=== PATIENT | female | born 1975 | race Caucasian/White ===

== ENCOUNTER → 2018-07-07 | Outpatient (CLI) | payer BC ==
[~2018-07-07] MED LIST: DIPH50CA PO; NITR-65 PO; PHEN200T27 PO
--- NOTE | 2018-07-07 17:44 | Diagnostic Imaging Report ---
INDICATION: Right-sided pelvic pain. Pelvic sonography is performed with transabdominal and transvaginal views. The uterus measures 11.6 x 7.1 x 5.9 cm. Endometrium appears thickened measuring 1.8 cm. The right ovary appears normal and measures 4.4 x 2.3 x 2.6 cm. The right ovary contains color flow. Left ovary could not be visualized. IMPRESSION: Thickened endometrium, correlate with menstrual phase. No uterine mass is seen. Normal-appearing right ovary, left ovary not visualized. There is no free fluid. Dictated by: Dictated on workstation # [id number]
--- NOTE | 2018-07-08 21:16 | Diagnostic Imaging Report ---
INDICATION: Routine screening. No prior mammograms are available for comparison. This is a baseline study. 2-D and 3-D bilateral screening mammography was performed with computer-aided Detection (CAD) system. FINDINGS: Scattered fibroglandular densities are identified bilaterally. No mass or malignant-appearing microcalcifications are identified. The axillae are unremarkable. IMPRESSION: No mammographic features suspicious for malignancy are identified. ACR BI-RADS Category 1: Negative. Result letter will be mailed to the patient. Note: At least 10% of breast cancer is not imaged by mammography. Dictated by: Dictated on workstation # [id number]
== END ==
LOC: RAD 14:50
PROVIDERS: ATTEND Nurse Practitioner
DX: Z12.31 Encounter for screening mammogram for malignant neoplasm of breast (principal); N85.8 Other specified noninflammatory disorders of uterus
CPT/HCPCS: 76830; 76856; 77067

== ENCOUNTER 2018-08-23 09:59 | Outpatient (CLI) | payer BC ==
[~2018-08-23] VITALS: Ht 172.7 cm; Wt 112.0 kg
== END 2018-08-23 15:34 | disposition home or self-care (01) ==
LOC: PREOP 09:59
PROVIDERS: ATTEND Obstetrics & Gynecology
DX: Z01.818 Encounter for other preprocedural examination (principal)

== ENCOUNTER 2018-08-25 08:37 | Day surgery (SDC) | payer BC ==
[~2018-08-25] VITALS: Ht 172.7 cm; Wt 109.8 kg
--- OUTSIDE RECORDS SUMMARY | 2018-08-25 08:41 | XMS REPORT | Continuity of Care Document ---
Author Author [facility] Organization [facility] Address Unknown Phone Unavailable Allergies Active Description Code Type Severity Reaction Onset Reported/Identified Relationship to Patient Clinical Status Yes No Known Drug Allergies [id number] Drug Allergy Unknown N/A 04/29/2013 Medications There is no data. 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 Results There is no data. Encounters ACCT No. Visit Date/Time Discharge Status Pt. Type Provider Facility Loc./Unit Complaint [id number] 08/23/2018 09:59:00 08/23/2018 15:34:00 DIS Outpatient BETO CARLSON DO [facility] PREOP ABNORMAL UTERINE BLEEDING [id number] 07/07/2018 14:50:00 07/07/2018 23:59:59 CLS Outpatient MARSHA ANNE [facility] RAD SCREENING/RLQ DISCOMFORT [id number] 06/17/2015 08:53:00 06/17/2015 23:59:59 CLS Outpatient BETO POPE MD [facility] WOUNDCARE [id number] 04/28/2013 23:46:00 04/29/2013 01:21:00 DIS Emergency ILIR ZELDA ROMERO Sumit [facility] ER UTI [id number] 08/25/2018 10:15:00 PEN Preadmit BETO CARLSON DO [facility] SDC ABNORMAL UTERINE BLEEDING [id number] 07/03/2015 00:00:00 Document Registration [id number] 07/26/2014 22:26:00 Document Registration
[2018-08-25] MEDS ORDERED: LACTATED RINGERS 1,000 ML IV PRN (08:49)
[2018-08-25 09:15] VITALS: BP 96/56
[2018-08-25 09:29] LABS: BASOPHILS % (AUTO) 0 % (0-10); EOSINOPHILS # (AUTO) 0.2 10^3/uL (0.0-0.3); EOSINOPHILS % (AUTO) 3 % (0-10); HEMATOCRIT 40 % (35-52); HEMOGLOBIN 14.1 G/DL (11.5-16.0); LYMPHOCYTES # (AUTO) 2.4 X 10^3 (1.0-4.0); LYMPHOCYTES % (AUTO) 38 % (12-44); MEAN CORPUSCULAR HEMOGLOBIN 32 PG (25-34); MEAN CORPUSCULAR HGB CONC 35 G/DL (32-36); MEAN CORPUSCULAR VOLUME 89 FL (80-99); MEAN PLATELET VOLUME 10.5 FL (7.4-10.4); MONOCYTES # (AUTO) 0.6 X 10^3 (0.0-1.0); MONOCYTES % (AUTO) 9 % (0-12); NEUTROPHILS # (AUTO) 3.2 X 10^3 (1.8-7.8); NEUTROPHILS % (AUTO) 50 % (42-75); PLATELET COUNT 313 10^3/uL (130-400); RED CELL DISTRIBUTION WIDTH 13.7 % (10.0-14.5); WHITE BLOOD COUNT 6.4 10^3/uL (4.3-11.0)
[2018-08-25] MEDS ORDERED: D5 LR IV SOLUTION 1,000 ML IV SCH (09:40)
--- NOTE | 2018-08-25 09:42 | Discharge Inst-Women's Service ---
Discharge Inst-Women's Serv Depart Medication/Instructions New, Converted or Re-Newed RX: Other (no scripts patient to take own Advil as needed) Consults/Follow Up Orders/Referrals Dr. Carlson in 1-2 weeks Diet Discharge Diet: No Restrictions Symptoms to Report to : Bleeding Excessive, Pain Increased, Fever Over 101 Degrees F, Vaginal Bleeding Increase, Questions/Concerns For Any Problems or Questions: Contact Your Physician BETO CARLSON DO Aug 25, 2018 09:42
[2018-08-25] MEDS ORDERED: KETOROLAC 30 MG/ML VIAL IVP ONE (09:45)
[2018-08-25] MEDS ORDERED: ONDANSETRON 4 MG/2 ML (SDV) Z0FRAN IVP PRN ×2 (09:45→11:45)
[2018-08-25] MEDS ORDERED: fentaNYL INJECTION 100 MCG/2 ML AMP ONE (10:30)
[2018-08-25] MEDS ORDERED: MIDAZOLAM 2 MG/2 ML (VERSED) VIAL ONE (10:30)
[2018-08-25] MEDS ORDERED: LIDOCAINE PF 2% 5 ML (XYLOCAINE) VIAL ONE (10:32)
[2018-08-25] MEDS ORDERED: proPOfol 200 MG/20 ML (DIPRIVAN) VIAL IV ONE (10:32)
[2018-08-25] MEDS ORDERED: ONDANSETRON 4 MG/2 ML (SDV) Z0FRAN ONE (10:33)
[2018-08-25] MEDS ORDERED: DEXAMETHASONE 10 MG/ML (DECADRON) 1 ML VIAL ONE (10:33)
[2018-08-25] MEDS ORDERED: BUPIVACAINE 0.25% 30 ML (SENSORCAINE) VIAL ONE (10:36)
[2018-08-25] MEDS ORDERED: SEVOFLURANE (ULTANE) 15 ML INHAL SOLN ONE (11:16)
[2018-08-25] MEDS ORDERED: PROMETHAZINE INJ 25 MG/ML (PHENERGAN) AMP IVP ONE (11:45)
[2018-08-25] MEDS ORDERED: morphine INJ 10 MG/ML 1ML (SYR OR VIAL) IVP ONE (11:45)
[2018-08-25 12:15] VITALS: BP 114/79
[2018-08-25 12:45] VITALS: BP 114/70
[2018-08-25 13:15] VITALS: BP 117/69
[2018-08-25 13:20] VITALS: BP 117/69
--- NOTE | 2018-08-25 14:47 | Anesthesia-General Post-Op ---
General Patient Condition Mental Status/LOC: Same as Preop Cardiovascular: Satisfactory Nausea/Vomiting: Absent Respiratory: Satisfactory Pain: Controlled Complications: Absent Post Op Complications Complications None Follow Up Care/Instructions Patient Instructions None needed. Anesthesia/Patient Condition Patient Condition Patient was seen after the procedure and she was doing well, no complaints, stable vital signs, no apparent adverse anesthesia problems. EMMANUEL OLIVEIRA DO Aug 25, 2018 14:47
--- NOTE | 2018-08-25 20:19 | OPERATIVE REPORT ---
DATE OF SERVICE: 08/25/2018 PREOPERATIVE DIAGNOSES: 1. A 43-year-old female with abnormal uterine bleeding. 2. Thickened endometrium. POSTOPERATIVE DIAGNOSES: 1. A 43-year-old female with abnormal uterine bleeding. 2. Thickened endometrium. 3. Endometrial polypoid tissue. PROCEDURE PERFORMED: D and C hysteroscopy. SURGEON: Beto Carlson DO. ANESTHESIA: General endotracheal. ESTIMATED BLOOD LOSS: Minimal. URINE OUTPUT: 200 mL clear at the end of the procedure. FLUIDS: 600 mL lactated Ringer solution. FINDINGS: Two separate polypoid structures in the endometrial cavity, otherwise grossly normal-appearing endometrial cavity without evidence of submucosal fibroid or other neoplasm. SPECIMENS SENT: Endometrial curettings. INDICATIONS FOR PROCEDURE: This 43-year-old female was sent to my office for evaluation and referral from Margarita Slaughter, our nurse practitioner for finding of abnormal uterine bleeding over the age of 40 and thickened endometrium on ultrasound. I discussed with the patient to perform an EMB in the office versus proceed with D and C in the operating room. We did discuss how D and C could be both curative and diagnostic versus EMB would probably only serve as a diagnostic test primarily. All of her questions were answered with her present including recovery time frame, risks of the procedure as well as follow up. After everything was discussed and all of their questions were answered, consent was obtained, the patient was taken to the operating room. DESCRIPTION OF PROCEDURE: Once in the operating room, general anesthesia was found to be adequate, placed in dorsal lithotomy position, prepped and draped in normal sterile fashion. A weighted speculum was inserted in the patient's vagina. A right angle retractor was used to visualize the cervix, which was grasped at 12 o'clock position using a long Allis clamp. A paracervical block was then performed at 3 o'clock and 9 o'clock positions. A 0.25% Marcaine, 5 mL were injected at each site after which I then proceeded to sound the uterine cavity depth, which is found to be 8 cm. I then gently dilated the cervix using Hegar dilators for approximately 5-8 mm, allowing me to place a hysteroscope. Using the [employer] fluid management system and normal saline as my visual medium, I advanced the hysteroscope in the intrauterine cavity and able to identify my findings as listed above. After this was done, I removed the hysteroscope and proceeded with performing a curetting directed toward these 2 polyps. A small to moderate amount of polypoid tissue was removed by doing so after which there was no active bleeding noted from any of my dissection planes. The patient tolerated the procedure well and sent to Recovery in stable condition. All other instruments were removed from the patient's vagina at that point. Lap and sponge counts were correct at the end of the procedure. Instrument counts were correct as well. Job ID: [id number] DocumentID: [id number] Dictated Date: 08/25/2018 11:42:57 Business Practices Supervisor Date: 08/25/2018 20:18:58 Dictated By: BETO CARLSON DO
== END 2018-08-25 13:20 | disposition home or self-care (01) ==
LOC: SDC 08:37
PROVIDERS: ATTEND Obstetrics & Gynecology
DX: N93.9 Abnormal uterine and vaginal bleeding, unspecified (principal); R93.89 Abnormal findings on diagnostic imaging of other specified body structures; N84.0 Polyp of corpus uteri; E66.9 Obesity, unspecified; Z68.36 Body mass index [BMI] 36.0-36.9, adult
CPT/HCPCS: 36415; 84703; 85025; 86850; 86900; 86901; 87081; 88305

== ENCOUNTER → 2020-10-15 | Outpatient (CLI) | payer BC ==
--- NOTE | 2020-10-15 18:00 | Diagnostic Imaging Report ---
PROCEDURE: US Non-ob pelvis comp/trans. TECHNIQUE: Multiple realtime grayscale images were obtained of the pelvis in various projections endovaginally. Transabdominal imaging was also performed. INDICATION: Right-sided pelvic pain during menses. COMPARISON: Comparison with 07/07/2018, pelvic ultrasound. FINDINGS: Uterus measures 8.6 x 4.8 x 6.4 cm. Endometrial stripe is 1.4 cm. There is a trace of endometrial fluid. There are no endometrial or myometrial masses. The right ovary measures 3 x 1.2 x 2.4 cm. The left ovary measures 3.8 x 2 x 2 cm. There is normal blood flow to both ovaries. There are no ovarian cysts. There is no free fluid in the pelvis. There is noted a simple nabothian cyst in the cervix measuring less than 1 cm. IMPRESSION: 1. No evidence of ovarian cysts. There is a trace of free fluid in the cul-de-sac. 2. Simple nabothian cyst in the cervix. Dictated by: Dictated on workstation # [id number]
--- NOTE | 2020-10-15 20:46 | Diagnostic Imaging Report ---
INDICATION: Routine screening. COMPARISON is made with prior mammogram 07/07/2018. 2-D and 3-D bilateral screening mammography was performed with CAD. Both breasts are heterogeneously dense, limiting the sensitivity of mammography. The parenchymal pattern is stable. No mass or malignant appearing microcalcifications are seen. Axillae are unremarkable. IMPRESSION: BI-RADS Category 1 No mammographic features suspicious for malignancy are identified. ACR BI-RADS Category 1: Negative. Result letter will be mailed to the patient. Note: At least 10% of breast cancer is not imaged by mammography. Dictated by: Dictated on workstation # [id number]
== END ==
LOC: RAD 13:46
PROVIDERS: ATTEND Obstetrics & Gynecology
DX: Z12.31 Encounter for screening mammogram for malignant neoplasm of breast (principal); N88.8 Other specified noninflammatory disorders of cervix uteri
CPT/HCPCS: 76830; 76856; 77063; 77067

== ENCOUNTER → 2021-07-23 | Outpatient (CLI) | payer BC ==
--- NOTE | 2021-07-23 08:58 | Diagnostic Imaging Report ---
PROCEDURE: MR imaging cervical spine without contrast. TECHNIQUE: Multiplanar, multisequence MR imaging of the cervical spine was performed without contrast. INDICATION: Neck pain, left shoulder pain, hand tingling and numbness. FINDINGS: The cervical vertebral statures and alignment are normal. The marrow signal intensity is normal. The cervical spinal cord itself has normal volume, morphology, and signal intensity. The ligamentous structures show no evidence for their rupture. There is no paraspinal mass, hemorrhage, or fluid collection. There is no acute intrathecal abnormality. The craniocervical relationship at the C1 and C2 levels is normal. C2-C3: This level and disc are normal. No stenosis. C3-C4: This level and disc are normal. No stenosis. C4-C5: There is disc desiccation, slight disc stature loss, and mild circumferential annular bulge. There is some mild right-sided uncovertebral joint spurring. There is no significant canal stenosis. The left neuroforamen is widely patent. The right is mildly narrowed. C5-C6: There is disc desiccation, disc stature loss, and broad-based posterior disc protrusion elevating the unruptured posterior longitudinal ligament. Effacing and flattening of the ventral thecal sac result in severe canal stenosis. There is moderate left and severe right neuroforaminal narrowing with right greater than left uncovertebral joint spurring. C6-C7: Disc desiccation, stature loss, and broad-based posterior bulging flattens and effaces the ventral thecal sac and severely stenose the spinal canal. This mildly effaces the ventral cord surface but no cord edema. There is moderate to severe left and moderate right neuroforaminal stenoses. C7-T1: This level and disc are unremarkable. There is no stenosis. IMPRESSION: Disc protrusions at C5-C6 and C6-C7 result in severe degrees of spinal stenosis detailed above. No bone contusion, marrow edema, or cord signal pathology. Dictated by: Dictated on workstation # [id number]
--- NOTE | 2021-07-23 09:18 | Diagnostic Imaging Report ---
INDICATION: LEFT ARM PARESTHESIA LT SHOULDER PAIN CERVICALGIA WITH LEFT RADICULOPATHY TECHNIQUE: Three views of the left shoulder CORRELATION STUDY: None FINDINGS: The glenohumeral and acromioclavicular alignment are maintained and unremarkable. There is no evidence for acute fracture or dislocation. The visualized soft tissues are unremarkable. IMPRESSION: 1. Negative for acute bony abnormality about the shoulder. Dictated by: Dictated on workstation # [id number]
== END ==
LOC: RAD 08:00
PROVIDERS: ATTEND Family Medicine
DX: M48.02 Spinal stenosis, cervical region (principal); M50.121 Cervical disc disorder at C4-C5 level with radiculopathy; M47.812 Spondylosis without myelopathy or radiculopathy, cervical region
CPT/HCPCS: 72141; 73030

== ENCOUNTER 2022-01-27 01:57 | Day surgery (SDC) | payer BC ==
[2022-01-27] VITALS (12 sets, daily range): BP systolic 117–153; BP diastolic 60–82
[~2022-01-27] VITALS: Ht 175.3 cm; Wt 92.2 kg
--- NOTE | 2022-01-27 03:17 | ED Abdominal Pain ---
General Chief Complaint: Abdominal/GI Problems Stated Complaint: ABD PAIN Nursing Triage Note: pt presents with complains of umbilical location abd pain for 12 hours. pt stated "i think im having pancreatitis". pt denies ever having pancreatitis before. pt reports nausea but denies vomiting and diarrhea. History of Present Illness Date Seen by Provider: Jan 27, 2022 Time Seen by Provider: 03:10 Initial Comments 46-year-old female with PMH of HTN, is here with complaints of epigastric and left upper quadrant pain which has been going on for the past 12 hours, intermittent in nature ranging from 2-3/10 to 6-8/10. Pt states she notices pain whenever she eats food that is very sweet. It is associated with nausea. Denies fever, diarrhea and vomiting, constipation, chest pain, palpitations, dysuria. Pt does not drink alcohol or smoke. Allergies and Home Medications Allergies Coded Allergies: No Known Drug Allergies (Unverified , 04/29/13) Patient Home Medication List Home Medication List Reviewed: Yes No Active Prescriptions or Reported Meds Review of Systems Review of Systems Constitutional: no symptoms reported EENTM: No Symptoms Reported Respiratory: No Symptoms Reported Cardiovascular: No Symptoms Reported Gastrointestinal: Abdominal Pain, Nausea Genitourinary: No Symptoms Reported Musculoskeletal: no symptoms reported Skin: no symptoms reported Psychiatric/Neurological: No Symptoms Reported Endocrine: No Symptoms Reported Hematologic/Lymphatic: No Symptoms Reported Past Rdanuza-Wemdzi-Vhlsyt Hx Patient Social History Tobacco Use?: No Substance use?: No Alcohol Use?: No Pt feels they are or have been: No Immunizations Up To Date Tetanus Booster (TDap): More than 5yrs Influenza Vaccine Up-to-Date: No; Not Current First/Initial COVID19 Vaccinat: unknown date Second COVID19 Vaccination Prudencio: unknown date COVID19 Vaccine Veterinarian Assistant: moderna Seasonal Allergies Seasonal Allergies: No Past Medical History Surgeries: Yes ( 2005, dental implant) Section Respiratory: No Cardiac: No Neurological: No Last Menstrual Period: Dec 30, 2021 Reproductive Disorders: No Sexually Transmitted Disease: No HIV/AIDS: No Genitourinary: No UTI-Chronic Gastrointestinal: Yes (Dairy intolerance) Musculoskeletal: No Endocrine: No HEENT: No Loss of Vision: Denies Hearing Impairment: Denies Cancer: No Psychosocial: No Integumentary: No Blood Disorders: No Adverse Reaction/Blood Tranf: No Family Medical History Heart Disease, Cancer, Hypertension Physical Exam Vital Signs Vital Signs - First Documented 01/27/22 02:52 Pulse 60 Resp 18 B/P (MAP) 111/75 (87) Pulse Ox 97 O2 Delivery Room Air Capillary Refill : Height/Weight/BMI Height: 5'8.00" Weight: 242lbs. 0.0oz. 109.925501ik; 36.8 BMI Method:Estimated General Appearance: WD/WN, no apparent distress HEENT: PERRL/EOMI Neck: full range of motion Respiratory: chest non-tender, lungs clear Cardiovascular: normal peripheral pulses Gastrointestinal: normal bowel sounds, soft, no organomegaly, no pulsatile mass, tenderness (LUQ and epigastrium) Extremities: normal range of motion Back: normal inspection, no CVA tenderness, no vertebral tenderness Neurologic/Psychiatric: alert, normal mood/affect, oriented x 3 Skin: normal color Lymphatic: no adenopathy Progress/Results/Core Measures Results/Orders Lab Results Laboratory Tests Test 01/27/22 02:50 01/27/22 04:30 Range/Units White Blood Count 8.9 4.3-11.0 10^3/uL Red Blood Count 4.54 3.80-5.11 10^6/uL Hemoglobin 14.5 11.5-16.0 g/dL Hematocrit 42 35-52 % Mean Corpuscular Volume 93 80-99 fL Mean Corpuscular Hemoglobin 32 25-34 pg Mean Corpuscular Hemoglobin Concent 34 32-36 g/dL Red Cell Distribution Width 12.7 10.0-14.5 % Platelet Count 331 130-400 10^3/uL Mean Platelet Volume 10.5 9.0-12.2 fL Immature Granulocyte % (Auto) 0 % Neutrophils (%) (Auto) 70 42-75 % Lymphocytes (%) (Auto) 21 12-44 % Monocytes (%) (Auto) 8 0-12 % Eosinophils (%) (Auto) 1 0-10 % Basophils (%) (Auto) 0 0-10 % Neutrophils # (Auto) 6.2 1.8-7.8 10^3/uL Lymphocytes # (Auto) 1.9 1.0-4.0 10^3/uL Monocytes # (Auto) 0.7 0.0-1.0 10^3/uL Eosinophils # (Auto) 0.1 0.0-0.3 10^3/uL Basophils # (Auto) 0.0 0.0-0.1 10^3/uL Immature Granulocyte # (Auto) 0.0 0.0-0.1 10^3/uL Sodium Level 138 135-145 MMOL/L Potassium Level 3.7 3.6-5.0 MMOL/L Chloride Level 103 98-107 MMOL/L Carbon Dioxide Level 23 21-32 MMOL/L Anion Gap 12 5-14 MMOL/L Blood Urea Nitrogen 11 7-18 MG/DL Creatinine 0.71 0.60-1.30 MG/DL Estimat Glomerular Filtration Rate 105 BUN/Creatinine Ratio 15 Glucose Level 126 H 70-105 MG/DL Calcium Level 9.2 8.5-10.1 MG/DL Corrected Calcium 9.1 8.5-10.1 MG/DL Total Bilirubin 2.2 H 0.1-1.0 MG/DL Aspartate Amino Transf (AST/SGOT) 417 H 5-34 U/L Alanine Aminotransferase (ALT/SGPT) 372 H 0-55 U/L Alkaline Phosphatase 87 40-136 U/L Troponin I < 0.028 <0.028 NG/ML Total Protein 7.1 6.4-8.2 GM/DL Albumin 4.1 3.2-4.5 GM/DL Lipase 28 8-78 U/L Urine Color ORANGE Urine Clarity CLEAR Urine pH 6.5 5-9 Urine Specific [place] 1.015 L 1.016-1.022 Urine Protein TRACE H NEGATIVE Urine Glucose (UA) NEGATIVE NEGATIVE Urine Ketones 2+ H NEGATIVE Urine Nitrite NEGATIVE NEGATIVE Urine Bilirubin 1+ H NEGATIVE Urine Urobilinogen 2.0 < = 1.0 MG/DL Urine Leukocyte Esterase NEGATIVE NEGATIVE Urine RBC (Auto) NEGATIVE NEGATIVE Urine RBC NONE /HPF Urine WBC NONE /HPF Urine Squamous Epithelial Cells 2-5 /HPF Urine Crystals NONE /LPF Urine Bacteria NEGATIVE /HPF Urine Casts NONE /LPF Urine Mucus MODERATE H /LPF Urine Culture Indicated NO Urine Opiates Screen NEGATIVE NEGATIVE Urine Oxycodone Screen NEGATIVE NEGATIVE Urine Methadone Screen NEGATIVE NEGATIVE Urine Propoxyphene Screen NEGATIVE NEGATIVE Urine Barbiturates Screen NEGATIVE NEGATIVE Ur Tricyclic Antidepressants Screen NEGATIVE NEGATIVE Urine Phencyclidine Screen NEGATIVE NEGATIVE Urine Amphetamines Screen NEGATIVE NEGATIVE Urine Methamphetamines Screen NEGATIVE NEGATIVE Urine Benzodiazepines Screen NEGATIVE NEGATIVE Urine Cocaine Screen NEGATIVE NEGATIVE Urine Cannabinoids Screen NEGATIVE NEGATIVE My Orders Orders - SHAWN,DALLAS L MD Comprehensive Metabolic Panel (01/27/22 03:17) Lipase (01/27/22 03:17) Ua Culture If Indicated (01/27/22 03:17) Ed Iv/Invasive Line Start (01/27/22 03:17) Cbc With Automated Diff (01/27/22 03:17) Ct Abdomen/Pelvis W (01/27/22 03:17) Ketorolac Injection (Toradol Injection) (01/27/22 03:30) Drug Screen Stat (Urine) (01/27/22 03:17) Troponin I Saw (01/27/22 03:17) Ed Iv/Invasive Line Start (01/27/22 03:26) Ns Iv 1000 Ml (Sodium Chloride 0.9%) (01/27/22 03:30) Ondansetron Injection (Zofran Injectio (01/27/22 03:30) Iohexol Injection (Omnipaque 350 Mg/Ml 1 (01/27/22 04:15) Sodium Chloride Flush (Catheter Flush Sy (01/27/22 04:15) Ns (Ivpb) (Sodium Chloride 0.9% Ivpb Bag (01/27/22 04:15) Medications Given in ED Current Medications Medications Dose Ordered Sig/Thuy Route Start Time Stop Time Status Last Admin Dose Admin Iohexol 100 ml ONCE ONCE IV 01/27/22 04:15 01/27/22 04:16 DC 01/27/22 04:14 80 ML Sodium Chloride 10 ml NEEDED PRN IV 01/27/22 04:15 01/27/22 04:15 10 ML Sodium Chloride 100 ml ONCE ONCE IV 01/27/22 04:15 01/27/22 04:16 DC 01/27/22 04:15 80 ML Vital Signs/I&O 01/27/22 02:52 Pulse 60 Resp 18 B/P (MAP) 111/75 (87) Pulse Ox 97 O2 Delivery Room Air Blood Pressure Mean: 87 Progress Progress Note : Progress Note 1. LUQ & EPIGASTRIC PAIN: COMMON BILE DUCT DILATATION: POSSIBLE OBSTRUCTION - CT ABD & PELVIS: Dilatation of the common bile duct measuring up to 8 mm with periportal edema. If further concern for biliary obstruction, consider MRCP. Biliary calculus identified. No evidence of pancreatitis. - Labs: Bili is 2.2, AST/ ALT ratio is 417/372 - Troponin negative - Lipase negative - Toradol and ZOfran ordered but pt refused these medications. - NS IVF - Discussed with Dr Broussard and will admit to obs for Ultrasound and MRCP Diagnostic Imaging Diagonstic Imaging: CT Plain Films/CT/US/NM/MRI: abdomen Departure Impression Primary Impression: Epigastric abdominal pain Additional Impression: Common bile duct dilatation Disposition: 30 STILL A PATIENT Condition: Stable Admissions Decision to Admit Reason: Admit from ER (General) Decision to Admit/Date: Jan 27, 2022 Time/Decision to Admit Time: 06:30 Departure-Patient Inst. Referrals: PATRICA RUSSO MD (PCP) Primary Care Physician NO,LOCAL PHYSICIAN (Family) Primary Care Physician Scripts No Active Prescriptions or Reported Meds DALLAS ESCOBAR MD Jan 27, 2022 03:17
[2022-01-27] MEDS ORDERED: NS IV 1000 ML 1,000 ML IV SCH (03:30)
[2022-01-27] MEDS: KETOROLAC 30 MG/ML VIAL IVP ONE ×2 (03:31→03:34)
[2022-01-27] MEDS: ONDANSETRON 4 MG/2 ML (SDV) Z0FRAN IVP ONE ×2 (03:31→03:34)
[2022-01-27 03:32] LABS: BASOPHILS % (AUTO) 0 % (0-10); EOSINOPHILS # (AUTO) 0.1 10^3/uL (0.0-0.3); EOSINOPHILS % (AUTO) 1 % (0-10); HEMATOCRIT 42 % (35-52); HEMOGLOBIN 14.5 g/dL (11.5-16.0); LYMPHOCYTES # (AUTO) 1.9 10^3/uL (1.0-4.0); LYMPHOCYTES % (AUTO) 21 % (12-44); MEAN CORPUSCULAR HEMOGLOBIN 32 pg (25-34); MEAN CORPUSCULAR HGB CONC 34 g/dL (32-36); MEAN CORPUSCULAR VOLUME 93 fL (80-99); MEAN PLATELET VOLUME 10.5 fL (9.0-12.2); MONOCYTES # (AUTO) 0.7 10^3/uL (0.0-1.0); MONOCYTES % (AUTO) 8 % (0-12); NEUTROPHILS # (AUTO) 6.2 10^3/uL (1.8-7.8); NEUTROPHILS % (AUTO) 70 % (42-75); PLATELET COUNT 331 10^3/uL (130-400); WHITE BLOOD COUNT 8.9 10^3/uL (4.3-11.0)
[2022-01-27 03:34] LABS: ALBUMIN 4.1 GM/DL (3.2-4.5); POTASSIUM 3.7 MMOL/L (3.6-5.0)
[2022-01-27 03:36] LABS: CALCIUM 9.2 MG/DL (8.5-10.1)
[2022-01-27 03:37] LABS: TOTAL PROTEIN 7.1 GM/DL (6.4-8.2)
[2022-01-27 03:39] LABS: BILIRUBIN,TOTAL 2.2 MG/DL (0.1-1.0)
[2022-01-27 03:40] LABS: CREATININE SERUM 0.71 MG/DL (0.60-1.30)
[2022-01-27] MEDS ORDERED: IOHEXOL 350 MG/ML 100 ML (OMNIPAQUE 350) VIAL IV ONE (04:15)
[2022-01-27] MEDS ORDERED: NS 100 ML (IVPB) BAG IV ONE (04:15)
[2022-01-27] MEDS ORDERED: CATHETER FLUSH 10 ML SYR IV PRN (04:15)
[2022-01-27 04:35] LABS: CLARITY,URINE CLEAR; COLOR,URINE ORANGE; GLUCOSE, URINE (UA) NEGATIVE (NEGATIVE); KETONES,URINE 2+ (NEGATIVE); LEUKOCYTE ESTERASE ,URINE NEGATIVE (NEGATIVE); NITRITE,URINE NEGATIVE (NEGATIVE); PH,URINE 6.5 (5-9); PROTEIN,URINE TRACE (NEGATIVE)
[2022-01-27 04:43] LABS: BACTERIA,URINE NEGATIVE /HPF; BILIRUBIN,URINE 1+ (NEGATIVE)
[2022-01-27 04:52] LABS: AMPHETAMINE SCREEN, URINE NEGATIVE (NEGATIVE); BARBITURATE SCREEN URINE NEGATIVE (NEGATIVE); BENZODIAZEPINES SCREEN URINE NEGATIVE (NEGATIVE); CANNABINOID SCREEN, URINE NEGATIVE (NEGATIVE); COCAINE SCREEN URINE NEGATIVE (NEGATIVE); METHADONE STAT NEGATIVE (NEGATIVE); OPIATE SCREEN URINE NEGATIVE (NEGATIVE); OXYCODONE STAT NEGATIVE (NEGATIVE); PROPOXYPHENE STAT NEGATIVE (NEGATIVE); TRICYCLIC ANTIDEPRESSANTS SCRE NEGATIVE (NEGATIVE)
--- NOTE | 2022-01-27 07:27 | Diagnostic Imaging Report ---
PROCEDURE: CT abdomen and pelvis with contrast. TECHNIQUE: Multiple contiguous axial images were obtained through the abdomen and pelvis after administration of intravenous contrast. Auto Exposure Controls were utilized during the CT exam to meet ALARA standards for radiation dose reduction. All CT scans use one or more of the following dose optimizing techniques: automated exposure control, MA and/or KvP adjustment based on patient size and exam type or iterative reconstruction. INDICATION: Left upper quadrant pain Lung bases are clear. Liver appears normal. Gallbladder appears normal. Portal vein is patent. Common duct is upper limits of normal. Pancreas appears normal. Spleen is not enlarged. Kidneys and adrenals appear normal. There is contrast opacification within the calyces. Small calculi could be obscured. There is moderate amount of food residue in the stomach. Small bowel is not dilated. There is no evidence of appendicitis. Uterus and adnexa are unremarkable. There is a trace amount of free fluid in the cul-de-sac. There is no intraperitoneal free air. There is diverticulosis of the colon but no evidence of diverticulitis. IMPRESSION: Uncomplicated diverticulosis of the colon. Retained food residue in the stomach. No acute abnormality seen. I agree with preliminary interpretation. Dictated by: Dictated on workstation # [id number]
[2022-01-27] MEDS ORDERED: ONDANSETRON 4 MG/2 ML (SDV) Z0FRAN IVP PRN ×2 (08:00→18:30)
[2022-01-27] MEDS ORDERED: KETOROLAC 15 MG/ML VIAL IVP PRN (08:00)
[2022-01-27] MEDS: NS IV 1000 ML 1,000 ML IV SCH ×3 (08:12→19:42)
--- NOTE | 2022-01-27 09:21 | Diagnostic Imaging Report ---
CLINICAL INDICATION: Patient with right upper quadrant pain. EXAM: Right upper quadrant ultrasound. COMPARISON: CT scan of the abdomen and pelvis with contrast dated 01/27/2022. FINDINGS: There is bowel gas which obscures some portions of the pancreatic tail. Otherwise visualized portion of pancreas is unremarkable. The visualized portions of the abdominal aorta and IVC show no significant abnormality. Liver measures 14.8 cm. The liver has normal echogenicity and echotexture. The liver surface is smooth. There is no liver mass. The main portal vein demonstrates hepatopetal flow. Common bile duct is dilated at 9 mm. There is no definite stone in the common duct seen. There is no intrahepatic ductal dilation. There are multiple echogenic areas seen within the gallbladder with no significant posterior shadowing. These may represent stones and/or sludge. Gallbladder is moderately fluid filled. The gallbladder wall measures 3 mm. There is no sonographic Laws sign. Right kidney measures 11.9 cm in craniocaudal dimension. There is no hydronephrosis or mass. There is no abdominal ascites. IMPRESSION: 1: There are multiple stones and/or sludge within the gallbladder with mild gallbladder wall thickening. Gallbladder is moderately distended. There is no sonographic Laws sign. There is dilation of the common duct which measures 9 mm. There is no stone in the region of the common hepatic duct. MRCP would help better evaluate to exclude a stone in the common hepatic duct. Given the above findings, acute cholecystitis cannot be completely excluded. 2: The remainder of the exam shows no other significant abnormality. Dictated by: Dictated on workstation # [id number]
--- NOTE | 2022-01-27 10:25 | Consultation - Surgery ---
SANTIAGO RIVERA 01/27/22 1025: History of Present Illness History of Present Illness Patient Consulted On(joe/time) 01/27/22 10:20 Date Seen by Provider: Jan 27, 2022 Time Seen by Provider: 07:55 History of Present Illness Pt is 46yo F who presented to ER with abdominal pain and nausea following a meal. This is the 3rd such attack she has had in the last 18 months or so. The pain is epigastric, sharp and all the way through to the back. She denies and sweats/chills or fever. She says the pain is usually caused by eating sweet meals with high sugar. The pain is improved by switching her diet over to keto shakes for the next few days. She also recalls having some pain and vomiting after eating ribs one time. Allergies and Home Medications Allergies Coded Allergies: No Known Drug Allergies (Unverified , 04/29/13) Patient Home Medication List Cranberry Extract/Vit C (Azo Cranberry Softgel) 250 Mg-60 Mg Capsule, 1 EACH PO DAILY, (Reported) Entered as Reported by: BOLA COLLINS on 01/27/221228 Last Action: Reviewed Vitamin E Mixed (Vitamin E) 1,000 Unit Capsule, 1,000 UNIT PO DAILY, (Reported) Entered as Reported by: BOLA COLLINS on 01/27/221228 Last Action: Reviewed [Magnesium Malate] , 1 EA PO 1800, (Reported) Entered as Reported by: BOLA COLLINS on 01/27/221228 Last Action: Reviewed Past Vmfnizw-Vyzzsl-Zxpkzm Hx Patient Social History Smoking Status: Never a Smoker 2nd Hand Smoke Exposure: No Recent Hopitalizations: No Alcohol Use?: No Have you traveled recently?: No Immunizations Up To Date Tetanus Booster (TDap): More than 5yrs Seasonal Allergies Seasonal Allergies: No Surgeries History of Surgeries: Yes ( 2005, dental implant) Surgeries: Section Respiratory History of Respiratory Disorde: No Cardiovascular History of Cardiac Disorders: No Neurological History of Neurological Disord: No Reproductive System Hx Reproductive Disorders: No Sexually Transmitted Disease: No HIV/AIDS: No Genitourinary History of Genitourinary Disor: No Genitourinary Disorders: UTI-Chronic Gastrointestinal History of Gastrointestinal Di: No Musculoskeletal History of Musculoskeletal Dis: No Endocrine History of Endocrine Disorders: No HEENT History of HEENT Disorders: No Loss of Vision: Denies Hearing Impairment: Denies Cancer History of Cancer: No Psychosocial History of Psychiatric Problem: No Integumentary History of Skin or Integumenta: No Blood Transfusions History of Blood Disorders: No Adverse Reaction to a Blood Tr: No Family Medical History Significant Family History: Heart Disease, Cancer, Hypertension Review of Systems-General Constitutional: No chills, No diaphoresis, No fever Respiratory: No cough, No short of breath Cardiovascular: No chest pain Gastrointestinal: LUQ, abdominal pain (epigastric, sharp), nausea Physical Exam-General Problems Physical Exam Vital Signs Vital Signs - First Documented 01/27/22 01/27/22 02:52 08:00 Temp 37.2 Pulse 60 Resp 18 B/P (MAP) 111/75 (87) Pulse Ox 97 O2 Delivery Room Air Capillary Refill : General Appearance: no apparent distress, obese HEENT: PERRL/EOMI Neck: supple Respiratory: lungs clear, normal breath sounds, no respiratory distress, no accessory muscle use Cardiovascular: regular rate, rhythm, no murmur Gastrointestinal: normal bowel sounds, soft, tenderness (epigastric) Extremities: no pedal edema, normal capillary refill Neurologic/Psychiatric: alert, normal mood/affect, oriented x 3 Skin: normal color, warm/dry Lymphatic: no adenopathy (anterior/posterior cervical) Data Review Labs Laboratory Tests 01/27/22 02:50: White Blood Count 8.9, Red Blood Count 4.54, Hemoglobin 14.5, Hematocrit 42, M rick Corpuscular Volume 93, Mean Corpuscular Hemoglobin 32, Mean Corpuscular Hemoglobin Concent 34, Red Cell Distribution Width 12.7, Platelet Count 331, Mean Platelet Volume 10.5, Immature Granulocyte % (Auto) 0, Neutrophils (%) (Auto) 70, Lymphocytes (%) (Auto) 21, Monocytes (%) (Auto) 8, Eosinophils (%) (Auto) 1, Basophils (%) (Auto) 0, Neutrophils # (Auto) 6.2, Lymphocytes # (Auto) 1.9, Monocytes # (Auto) 0.7, Eosinophils # (Auto) 0.1, Basophils # (Auto) 0.0, Immature Granulocyte # (Auto) 0.0, Sodium Level 138, Potassium Level 3.7, Chloride Level 103, Carbon Dioxide Level 23, Anion Gap 12, Blood Urea Nitrogen 11, Creatinine 0.71, Estimat Glomerular Filtration Rate 105, BUN/Creatinine Ratio 15, Glucose Level 126H, Calcium Level 9.2, Corrected Calcium 9.1, Total Bilirubin 2.2H, Aspartate Amino Transf (AST/SGOT) 417H, Alanine Aminotransferase (ALT/SGPT) 372H, Alkaline Phosphatase 87, Troponin I < 0.028, Total Protein 7.1, Albumin 4.1, Lipase 28 01/27/22 04:30: Urine Color ORANGE, Urine Clarity CLEAR, Urine pH 6.5, Urine Specific Ina 1.015L, Urine Protein TRACEH, Urine Glucose (UA) NEGATIVE, Urine Ketones 2+H, Urine Nitrite NEGATIVE, Urine Bilirubin 1+H, Urine Urobilinogen 2.0, Urine Leukocyte Esterase NEGATIVE, Urine RBC (Auto) NEGATIVE, Urine RBC NONE, Urine WBC NONE, Urine Squamous Epithelial Cells 2-5, Urine Crystals NONE, Urine Bacteria NEGATIVE, Urine Casts NONE, Urine Mucus MODERATEH, Urine Culture Indicated NO, Urine Opiates Screen NEGATIVE, Urine Oxycodone Screen NEGATIVE, Urine Methadone Screen NEGATIVE, Urine Propoxyphene Screen NEGATIVE, Urine Barbiturates Screen NEGATIVE, Ur Tricyclic Antidepressants Screen NEGATIVE, Urine Phencyclidine Screen NEGATIVE, Urine Amphetamines Screen NEGATIVE, Urine Methamphetamines Screen NEGATIVE, Urine Benzodiazepines Screen NEGATIVE, Urine Cocaine Screen NEGATIVE, Urine Cannabinoids Screen NEGATIVE Assessment/Plan Assessment/Plan Assessment/Plan Cholelithiasis Abdominal pain Nausea Vomiting CT scan revealed stones in the gallbladder. This is her third attack in the last 18 months. Recommend she proceed with cholecystectomy. I discussed the operation with the patient including the risks/benefits and answered all questions that she had. FAUSTO CHENG DO 01/27/22 1500: History of Present Illness History of Present Illness Time Seen by Provider: 11:26 History of Present Illness Surgery asked to consult/admit for RUQ pain with elevate bilirubin and dilated CBD HPI: Pt presented to ER with epigastric and upper abdominal pain. Found to have elevated bilirubin and CT showed dilated CBD (recommended MRCP). Pt describes pain as sharp stabbing pain, this has been the worst it has ever been; rated as 8 out of 10. She thinks the first time she had something like this was 5 years ago. Avoiding certain foods makes it better. Allergies and Home Medications Allergies Coded Allergies: No Known Drug Allergies (Unverified , 04/29/13) Patient Home Medication List Home Medication List Reviewed: Yes Cranberry Extract/Vit C (Azo Cranberry Softgel) 250 Mg-60 Mg Capsule, 1 EACH PO DAILY, (Reported) Entered as Reported by: BOLA COLLINS on 01/27/221228 Last Action: Reviewed Vitamin E Mixed (Vitamin E) 1,000 Unit Capsule, 1,000 UNIT PO DAILY, (Reported) Entered as Reported by: BOLA COLLINS on 01/27/221228 Last Action: Reviewed [Magnesium Malate] , 1 EA PO 1800, (Reported) Entered as Reported by: BOLA COLLINS on 01/27/221228 Last Action: Reviewed Past Yppaqiz-Gtddpy-Jbudly Hx Patient Social History Smoking Status: Never a Smoker Alcohol Use?: No Surgeries History of Surgeries: Yes Surgeries: Section Respiratory History of Respiratory Disorde: No Cardiovascular History of Cardiac Disorders: No Neurological History of Neurological Disord: No Genitourinary History of Genitourinary Disor: No Gastrointestinal History of Gastrointestinal Di: Yes (dairy intolerance) Musculoskeletal History of Musculoskeletal Dis: No Endocrine History of Endocrine Disorders: No HEENT Loss of Vision: Denies Hearing Impairment: Hard of Hearing Cancer History of Cancer: No Psychosocial History of Psychiatric Problem: No Family Medical History Significant Family History: Heart Disease, Cancer, Hypertension Review of Systems-General Constitutional: No chills, No diaphoresis, No fever EENTM: No blurred vision, No mouth swelling, No epistaxis Respiratory: No cough, No short of breath Cardiovascular: No chest pain, No palpitations Gastrointestinal: abdominal pain (epigastric, sharp); No hematemesis, No jaundice; nausea; No vomiting Genitourinary: No dysuria, No frequency, No hematuria Musculoskeletal: No joint pain, No joint swelling, No muscle pain Skin: No change in color, No change in hair/nails Psychiatric/Neurological: Denies Anxiety, Denies Depressed, Denies Seizure, Denies Tremors Physical Exam-General Problems Physical Exam General Appearance: mild distress (secondary to pain), obese Eyes: Bilateral Eye PERRL, Bilateral Eye EOMI HEENT: pharynx normal; No scleral icterus (R), No scleral icterus (L) Neck: non-tender, supple Respiratory: lungs clear, normal breath sounds, no respiratory distress, no accessory muscle use Cardiovascular: regular rate, rhythm, no murmur Gastrointestinal: normal bowel sounds, soft, no organomegaly, tenderness (epigastric), hernia (umbilical) Back: no CVA tenderness, no vertebral tenderness Extremities: no pedal edema, no calf tenderness, normal capillary refill 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 EXAM: Right upper quadrant ultrasound. COMPARISON: CT scan of the abdomen and pelvis with contrast dated 01/27/2022. FINDINGS: There is bowel gas which obscures some portions of the pancreatic tail. Otherwise visualized portion of pancreas is unremarkable. The visualized portions of the abdominal aorta and IVC show no significant abnormality. Liver measures 14.8 cm. The liver has normal echogenicity and echotexture. The liver surface is smooth. There is no liver mass. The main portal vein demonstrates hepatopetal flow. Common bile duct is dilated at 9 mm. There is no definite stone in the common duct seen. There is no intrahepatic ductal dilation. There are multiple echogenic areas seen within the gallbladder with no significant posterior shadowing. These may represent stones and/or sludge. Gallbladder is moderately fluid filled. The gallbladder wall measures 3 mm. There is no sonographic Laws sign. Right kidney measures 11.9 cm in craniocaudal dimension. There is no hydronephrosis or mass. There is no abdominal ascites. IMPRESSION: 1: There are multiple stones and/or sludge within the gallbladder with mild gallbladder wall thickening. Gallbladder is moderately distended. There is no sonographic Laws sign. There is dilation of the common duct which measures 9 mm. There is no stone in the region of the common hepatic duct. MRCP would help better evaluate to exclude a stone in the common hepatic duct. Given the above findings, acute cholecystitis cannot be completely excluded. 2: The remainder of the exam shows no other significant abnormality. Dictated on workstation # [id number] Dict: 01/27/22 0910 Trans: 01/27/22 0920 CVB [id number] Interpreted by: MILADYS ROJO MD Assessment/Plan Assessment/Plan Assessment/Plan Cholelithiasis/Cholecysitis causing abdominal pain Elevated Bilirubin N/V US revealed stones in the gallbladder and confirmed what CT showed; dilated CBD. I reviewed the images myself and then went over them with Radiologist. This is her third attack in the last 18 months; in addition she may have a retained CBD and/or possibly passed a stone. I went over options with pt: 1) do nothing 2) MRCP and then surgery with possible ERCP 3) Laparoscopic Cholecystectomy with cholangiogram and may need ERCP. She wants to proceed with cholecystectomy and cholangiogram. I discussed the operation with the patient including the risks/benefits not limited to pain, bleeding, infection, scar, damage to bowel or bile duct and need for furthe procedure. All questions answered to her satisfaction. Will get consent, pain control, anti-emetics as needed, IV fluids. Supervisory-Addendum Brief Verification & Attestation Participated in pt care: history, MDM, physical Personally performed: exam, history, MDM, supervision of care Care discussed with: Medical Student Procedures: n/a Verification and Attestation of Medical Student E/M Service A medical student performed and documented this service. I then reviewed and dolores ified all information documented by the medical student and made modifications to such information, when appropriate. I personally performed a physical exam, medical decision making and then discussed any differences between the notes and made revisions as necessary to create one note. Fausto Cheng , 01/27/22 , 15:14 SANTIAGO RIVERA Jan 27, 2022 10:25 FAUSTO CHENG DO Jan 27, 2022 15:00
[2022-01-27] MEDS ORDERED: CRAN1CAP5 PO (12:29)
[2022-01-27] MEDS ORDERED: MAGNESIUM MALATE PO (12:29)
[2022-01-27] MEDS ORDERED: VITA100033 PO (12:29)
[2022-01-27] MEDS ORDERED: LIDOCAINE/EPI 2% 1:200,00 (XYLOCAINE) 20 ML VIAL ONE (15:19)
[2022-01-27] MEDS ORDERED: IOHEXOL 300 MG/ML 30 ML (OMNIPAQUE 300) VIAL INJ ONE (15:35)
[2022-01-27] MEDS ORDERED: LIDOCAINE/EPI 2% 1:200,00 (XYLOCAINE) 10 ML VIAL INJ ONE (15:37)
[2022-01-27] MEDS ORDERED: LIDOCAINE PF 2% 5 ML (XYLOCAINE) VIAL ONE (15:41)
[2022-01-27] MEDS ORDERED: proPOfol 200 MG/20 ML (DIPRIVAN) VIAL IV ONE (15:41)
[2022-01-27] MEDS ORDERED: ONDANSETRON 4 MG/2 ML (SDV) Z0FRAN ONE ×2 (15:41→16:51)
[2022-01-27] MEDS ORDERED: ROCURONIUM 50 MG/5 ML (ZEMURON) VIAL IV ONE (15:41)
[2022-01-27] MEDS ORDERED: MIDAZOLAM 2 MG/2 ML (VERSED) VIAL ONE (15:42)
[2022-01-27] MEDS ORDERED: fentaNYL INJ 100 MCG/2 ML AMP ONE ×2 (15:42→16:51)
[2022-01-27] MEDS ORDERED: ceFAZolin INJECTION 2,000 MG in NS (IVPB) 50 ML IV NR (15:45)
[2022-01-27] MEDS: LACTATED RINGERS 1,000 ML IV PRN ×2 (16:45→17:47)
[2022-01-27] MEDS ORDERED: MEPERIDINE (DEMEROL) INJ 50 MG/ML ONE (16:51)
[2022-01-27] MEDS ORDERED: morphine INJ 10 MG/ML 1ML (SYR OR VIAL) ONE (16:51)
[2022-01-27] MEDS ORDERED: SEVOFLURANE (ULTANE) 15 ML INHAL SOLN ONE ×2 (17:32→18:13)
[2022-01-27] MEDS ORDERED: NEOSTIGMINE (BLOXIVERZ ) 1 MG/1ML 10 ML VIAL ONE (17:56)
[2022-01-27] MEDS ORDERED: GLYCOPYRROLATE 0.2 MG/ML (ROBINUL) 2 ML VIAL ONE (17:56)
--- NOTE | 2022-01-27 18:03 | Diagnostic Imaging Report ---
INDICATION: Laparoscopic cholecystectomy. EXAMINATION: Fluoroscopic evaluation of the right upper quadrant from 01/27/2022. FINDINGS: Multiple limited intraoperative fluoroscopic images are provided. The common duct appears grossly dilated but cannot be measured on the images provided. No persistent filling defects appreciated. Visualized cystic duct is also grossly distended subjectively. 1 minute 29 seconds fluoroscopy time used. IMPRESSION: 1. Limited intraoperative evaluation with suspected dilatation of the common duct. No obstructive process. Dictated by: Dictated on workstation # [id number]
--- NOTE | 2022-01-27 18:24 | Anesthesia-General Post-Op ---
General Patient Condition Mental Status/LOC: Same as Preop Cardiovascular: Satisfactory Nausea/Vomiting: Absent Respiratory: Satisfactory Pain: Controlled Complications: Absent Post Op Complications Complications None Follow Up Care/Instructions Patient Instructions None needed. Anesthesia/Patient Condition Patient Condition Patient is doing well, no complaints, stable vital signs, no apparent adverse anesthesia problems. No complications reported per nursing. NIMA MITCHELL CRNA Jan 27, 2022 18:24
[2022-01-27] MEDS ORDERED: MEPERIDINE (DEMEROL) INJ 50 MG/ML IVP ONE (18:30)
[2022-01-27] MEDS ORDERED: fentaNYL INJ 100 MCG/2 ML AMP IVP ONE (18:30)
[2022-01-27] MEDS ORDERED: morphine INJ 10 MG/ML 1ML (SYR OR VIAL) IVP ONE (18:30)
--- NOTE | 2022-01-27 20:57 | Progress Note-Post Operative ---
Post-Operative Progess Note Surgeon (s)/Manager Process Improvement (s) Surgeon FAUSTO CHENG DO Manager Process Improvement: Christine Pre-Operative Diagnosis Cholecystitis/Cholelithiasis possible Choledochalithiasis Post-Operative Diagnosis Acute Cholecystitis/Cholelithiasis with Choledochalithiasis almost obstructed Procedure & Operative Findings Date of Procedure 01/27/22 Procedure Performed/Findings PROCEDURE: Laparoscopic cholecystectomy with intraoperative cholangiogram. Common Bile duct Exploration thru cystic duct COMPLICATIONS: None. PROCEDURE: The patient was taken to the operating suite and was prepped and draped in sterile fashion. A surgical pause was performed. Just superior to the umbilicus, a 12 mm incision was made. Dissection was taken down to the fascia, which was then scored and grasped with a Bj and the abdomen was then entered. An 0 Vicryl suture was placed in a ajlflu-cx-njfhr fashion and a Art trocar was placed and secured. Pneumoperitoneum was achieved. A 5mm trochar place in the subxyphoid and 2 in the right upper quadrant. Upon entering the gallbladder was noted to be enlarged and injected; looked like an acute cholecystitis. There were adhesions noted, which indicate previous attacks. There was a lot of edema around the gallbladder and some bile staining was noted. The gallbladder was then grasped at the fundus and elevated. Another grasped at Reed's pouch and pulled in the inferolateral direction. The cystic duct, and cystic artery were then dissected out. The cystic artery was in front of duct; so two clips placed distally,one superiorly and then it was transected with scissors. Clipwas placed on the distal portion of the cystic duct which was then partially transected. An arrow catheter was inserted into the duct. The cholangiogram was then performed and we saw a filling defect at the opening to small intestine; however contrast did make its way into the duodenum. Elected to try and do common bile duct exploration to remove the choledochal stone. First tried to pull stone up and out of the cystic duct; unsuccessful. Next blew up the catheter balloon and pushed down and could feel it pop into the duodenum. Then shot another cholangiogram and did not see the calculus. At this point the catheter was removed. Clips were placed on proximal portion of the cystic duct and then the duct was then rodriguez- sected. Hook cautery was used to dissect the gallbladder from the gallbladder fossa achieving hemostasis. The gallbladder was placed in an Endobag and removed through the 12 mm trocar site. The abdomen was then reinspected. Copious amounts of irrigation were used to irrigate the abdomen and there were no signs of active bleeding. Hemostasis had been achieved. The 12 mm fascial defect was then closed with the 0 Vicryl suture that had been placed in a ipeadm-zc-qficl fashion. The abdomen was then desufflated, the trocars were removed. The abdomen was then washed and dried. The skin was then closed using 4-0 Monocryl in a subcuticular fashion. The abdomen was washed and dried and Skin Affix was place over incisions. Patient tolerated the procedure well without any complications and was taken to the recovery room in stable condition. Dr. King assisted on this case helping to make incisions, close incisions, identify anatomy and hold anatomy out of the way. Anesthesia Type GET Estimated Blood Loss Estimated blood loss (mL): less than 10ml Specimens/Packing Specimens Removed GB and contents FAUSTO CHENG DO Jan 27, 2022 20:57
[2022-01-28] MEDS: NS IV 1000 ML 1,000 ML IV SCH ×2 (00:51→07:39)
[2022-01-28] MEDS: HYDROcodone/APAP 5 MG/325 MG (LORTAB) TAB PO PRN ×2 (00:51→10:48)
[2022-01-28 03:38] VITALS: BP 125/74
[2022-01-28 05:37] LABS: BASOPHILS % (AUTO) 0 % (0-10); EOSINOPHILS % (AUTO) 0 % (0-10); HEMATOCRIT 36 % (35-52); HEMOGLOBIN 12.4 g/dL (11.5-16.0); LYMPHOCYTES # (AUTO) 1.6 10^3/uL (1.0-4.0); LYMPHOCYTES % (AUTO) 19 % (12-44); MEAN CORPUSCULAR HEMOGLOBIN 32 pg (25-34); MEAN CORPUSCULAR HGB CONC 34 g/dL (32-36); MEAN CORPUSCULAR VOLUME 93 fL (80-99); MEAN PLATELET VOLUME 10.5 fL (9.0-12.2); MONOCYTES # (AUTO) 0.6 10^3/uL (0.0-1.0); MONOCYTES % (AUTO) 7 % (0-12); NEUTROPHILS # (AUTO) 6.5 10^3/uL (1.8-7.8); NEUTROPHILS % (AUTO) 74 % (42-75); PLATELET COUNT 239 10^3/uL (130-400); WHITE BLOOD COUNT 8.9 10^3/uL (4.3-11.0)
[2022-01-28 05:56] LABS: ALBUMIN 3.1 GM/DL (3.2-4.5); POTASSIUM 3.8 MMOL/L (3.6-5.0)
[2022-01-28 05:57] LABS: CALCIUM 8.4 MG/DL (8.5-10.1)
[2022-01-28 05:58] LABS: TOTAL PROTEIN 5.4 GM/DL (6.4-8.2)
[2022-01-28 06:00] LABS: BILIRUBIN,TOTAL 1.1 MG/DL (0.1-1.0)
[2022-01-28 06:02] LABS: CREATININE SERUM 0.52 MG/DL (0.60-1.30)
--- NOTE | 2022-01-28 07:32 | Progress Note - Surgery ---
VIRGIL HARMON 01/28/22 0732: Subjective Date Seen by a Provider: Jan 28, 2022 Subjective/Events-last exam Pt s/p laparoscopic cholecystectomy, tolerated well. States her pain is well controlled this morning and she had no problems throughout the night. She denies fever, chills, night sweats, N/V, chest pain, SOB or any other medical complaints. States she is drinking and urinating without difficulty. She has not had a bowel movement yet. Review of Systems General: No Chills, No Night Sweats, No Fatigue HEENT: No Visual Changes Pulmonary: No Dyspnea, No Cough Cardiovascular: No: Chest Pain Gastrointestinal: Abdominal Pain (minimal ); No: Nausea, Vomiting, Diarrhea, Constipation Genitourinary: No Retention Objective Exam Vital Signs Date Time Temp Pulse Resp B/P (MAP) Pulse Ox O2 Delivery O2 Flow Rate FiO2 01/28/22 03:38 36.9 70 18 125/74 (91) 97 Room Air 01/27/22 23:21 37.6 90 18 130/80 (97) 95 Room Air 01/27/22 20:06 Room Air 01/27/22 20:00 37.4 73 18 153/76 (101) 96 Room Air 01/27/22 19:30 97 Room Air 01/27/22 19:20 36.1 20 129/81 (97) 94 Room Air 01/27/22 19:20 Room Air 01/27/22 19:15 Room Air 01/27/22 19:10 20 125/82 (96) 94 Room Air 01/27/22 19:00 OxyMask 2.00 01/27/22 19:00 20 134/80 (98) 97 OxyMask 2.00 01/27/22 18:50 20 132/67 (88) 99 OxyMask 3.00 01/27/22 18:45 OxyMask 3.00 01/27/22 18:40 20 130/60 (83) 99 OxyMask 3.00 01/27/22 18:30 OxyMask 6.00 01/27/22 18:30 20 132/67 (88) 100 OxyMask 6.00 01/27/22 18:18 OxyMask 6.00 01/27/22 18:18 36.1 20 117/64 (81) 97 OxyMask 6.00 01/27/22 16:00 37.5 76 18 137/81 (99) 97 Room Air 01/27/22 11:53 37.2 80 18 124/77 (93) 99 Room Air 01/27/22 08:19 97 Room Air 01/27/22 08:00 37.2 69 16 128/82 (97) 97 Room Air I & O 01/28/22 07:00 Intake Total 1650 ml Balance 1650 ml Capillary Refill : Less Than 3 Seconds General Appearance: No Apparent Distress, WD/WN HEENT: PERRL/EOMI, Moist Mucous Membranes Neck: Non Tender, Supple Respiratory: Lungs Clear, Normal Breath Sounds, No Accessory Muscle Use, No Respiratory Distress Cardiovascular: Regular Rate, Rhythm, No Gallop, No Murmur Peripheral Pulses: 2+ Radial Pulses (R), 2+ Radial Pulses (L) Gastrointestinal: normal bowel sounds, non tender, soft, no organomegaly, hernia (umbilical), other (inscisions are clean dry and intact, with no surrounding erythema. ) Extremity: Non Tender, No Calf Tenderness, Pedal Edema (very mild pedal edema) Neurologic/Psychiatric: Alert, Oriented x3, Normal Mood/Affect Skin: Normal Color, Warm/Dry Lymphatic: No Adenopathy (of supraclavicular or axillary LNs) Results Lab Laboratory Tests 01/28/22 05:27: White Blood Count 8.9, Red Blood Count 3.89, Hemoglobin 12.4, Hematocrit 36, Mean Corpuscular Volume 93, Mean Corpuscular Hemoglobin 32, Mean Corpuscular Hemoglobin Concent 34, Red Cell Distribution Width 12.7, Platelet Count 239, Mean Platelet Volume 10.5, Immature Granulocyte % (Auto) 1, Neutrophils (%) (Auto) 74, Lymphocytes (%) (Auto) 19, Monocytes (%) (Auto) 7, Eosinophils (%) (Auto) 0, Basophils (%) (Auto) 0, Neutrophils # (Auto) 6.5, Lymphocytes # (Auto) 1.6, Monocytes # (Auto) 0.6, Eosinophils # (Auto) 0.0, Basophils # (Auto) 0.0, Immature Granulocyte # (Auto) 0.0, Sodium Level 137, Potassium Level 3.8, Chloride Level 110H, Carbon Dioxide Level 16L, Anion Gap 11, Blood Urea Nitrogen 6L, Creatinine 0.52L, Estimat Glomerular Filtration Rate 115, BUN/Creatinine Ratio 12, Glucose Level 93, Calcium Level 8.4L, Corrected Calcium 9.1, Total Bilirubin 1.1H, Aspartate Amino Transf (AST/SGOT) 214H, Alanine Aminotransferase (ALT/SGPT) 508#H, Alkaline Phosphatase 85, Total Protein 5.4L, Albumin 3.1L, Lipase 17 Assessment/Plan Assessment/Plan Assessment/Plan Acute Cholecystitis/Cholelithiasis with Choledochalithiasis almost obstructed S/p laparoscopic cholecystectomy with intraoperative cholangiogram and CBD exploration, tolerating well. AST and ALT elevated from yesterday. Bilirubin has decreased to 1.1 from yesterday. Pt is hemodynamically stable with pain well controlled. Will continue to monitor labs. She may need an ERCP. REFUGIO BROUSSARD DO 01/28/22 1653: Subjective Time Seen by a Provider: 14:14 Subjective/Events-last exam Pt seen and examined, states she feels really good today and is tolerating diet. Wants to go home Review of Systems General: No Chills, No Night Sweats Pulmonary: No Dyspnea, No Cough Cardiovascular: No: Chest Pain Gastrointestinal: Abdominal Pain (minimal ); No: Nausea, Vomiting Objective Exam General Appearance: No Apparent Distress HEENT: PERRL/EOMI, Moist Mucous Membranes Respiratory: Lungs Clear, Normal Breath Sounds, No Accessory Muscle Use Cardiovascular: Regular Rate, Rhythm, No Murmur Gastrointestinal: soft, no organomegaly, tenderness (at incision), hernia (umbilical), other (inscisions are clean dry and intact, with no surrounding erythema. ) Assessment/Plan Assessment/Plan Assessment/Plan S/p laparoscopic cholecystectomy with intraoperative cholangiogram and CBD exploration Tolerating diet, Bilirubin has decreased to 1.1 from yesterday. Pt is hemodynamically stable with pain well controlled. Will d/c pt home Supervisory-Addendum Brief Verification & Attestation Participated in pt care: history, MDM, physical Personally performed: exam, history, MDM, supervision of care Care discussed with: Medical Student Procedures: n/a Verification and Attestation of Medical Student E/M Service A medical student performed and documented this service. I then reviewed and verified all information documented by the medical student and made modifications to such information, when appropriate. I personally performed a physical exam, medical decision making and then discussed any differences between the notes and made revisions as necessary to create one note. Refugio Broussard , 01/28/22 , 16:53 VIRGIL HARMON Jan 28, 2022 07:32 REFUGIO BROUSSARD DO Jan 28, 2022 16:53
[2022-01-28 08:02] VITALS: BP 116/68
[2022-01-28 11:39] VITALS: BP 141/70
[2022-01-28] MEDS ORDERED: ACHD5005 PO (15:52)
--- NOTE | 2022-01-28 15:53 | Discharge Inst-Surgical ---
Discharge Inst-Surgical Depart Medication/Instructions New, Converted or Re-Newed RX: Transmitted to Pharmacy Patient Instructions Follow up Appt: Make appointment for 1 week. [phone] Instructions: No lifting greater than 20 pounds. No strenuous activity. May shower in 24 hours, no tub bath or soaking. Use incentive spirometer at home as directed. No Smoking Skin/Wound Care: May remove bandages in am. You need to leave the Dermabond on incision it will fall off on it's own. Symptoms to Report: Appetite Changes, Extremity Discoloration, Numbness/Tingling, Swelling Increased, Bleeding Excessive, Eyesight Changes, Pain Increased, Urine Color Change, Constipation(Persistent), Fever over 101 degree F, Pain/Pressure in chest, Urinating Difficulty, Cough Up/Vomit Blood, Heart Beat Irreg/Pounding, Pain/Pressure in jaw, Cramps in feet or legs, Lightheadedness, Pain/Pressure in shoulder, Diarrhea(Persistent), Memory Changes Suddenly, Questions/Concerns, Weight gain consecutive days, Dizziness/Fainting, Nausea/Vomiting, Shortness of Breath, Weight gain over 2 pounds If questions or concerns contact your physician Or seek help at emergency department. Activity Activity as Tolerated: Yes Activity Instructions: Avoid Stress to Incision Driving Instructions: No Driving/Refer to Diet Discharge Diet: Avoid Fatty Foods, Low Fat/Low Cholesterol Diet After 24 Hours: Clear Liquid if Nauseous If Any Problems/Questions/Issu: Contact Your Physician, Go to Emergency Room Skin/Wound Care Infection Signs and Symptoms: Increased Redness, Foul Odor of Wound, Increased Drainage, Skin Itchy or Has a Rash, Increased Swelling, Temperature Above 101 F Bathing Instructions: Shower Stitches/Deny/Dermabond Dis: Dermabond FAUSTO CHENG DO Jan 28, 2022 15:53
[2022-01-28 16:10] VITALS: BP 103/60
[2022-01-28 16:25] VITALS: BP 103/60
== END 2022-01-28 16:25 | disposition home or self-care (01) ==
LOC: EDUNIT# 01:57 → ER 02:01 → 4TH 06:24 → UNDOADMOB 06:24 → SDC 06:24 → UNDODISOB 01-28 16:25
PROVIDERS: ATTEND Surgery
DX: K80.12 Calculus of gallbladder with acute and chronic cholecystitis without obstruction (principal)
CPT/HCPCS: 36415; 74177; 76000; 76705; 80053; 80306; 81000; 83690; 84484; 84703; 85025; 87081; 96360; 96361